=== PATIENT | male | born 2000 | race African-American/Black ===

== ENCOUNTER 2021-11-15 20:47 | Emergency (ER) | payer OTHER ==
[~2021-11-15] VITALS: Ht 193 cm; Wt 73.0 kg
[2021-11-15 21:34] VITALS: BP 133/96
[2021-11-16] MEDS ORDERED: GUAI600T26 MT (01:34)
== END 2021-11-16 00:04 | disposition left against medical advice (07) ==
LOC: ER 20:47
DX: Z53.21 Procedure and treatment not carried out due to patient leaving prior to being seen by health care provider (principal); F41.9 Anxiety disorder, unspecified; F20.9 Schizophrenia, unspecified

== ENCOUNTER 2021-11-16 00:11 | Emergency (ER) | payer OTHER ==
[2021-11-16 01:18] VITALS: BP 129/76
[2021-11-16] MEDS ORDERED: GUAI600T26 MT (01:34)
== END 2021-11-16 01:51 | disposition home or self-care (01) ==
LOC: ER 00:11
DX: B34.9 Viral infection, unspecified (principal); F20.9 Schizophrenia, unspecified; F41.9 Anxiety disorder, unspecified; Z98.890 Other specified postprocedural states; Z20.822 Contact with and (suspected) exposure to COVID-19
CPT/HCPCS: 87426; 99282; C9803